=== PATIENT | female | born 1985 | race Caucasian/White ===

== ENCOUNTER 2017-11-28 18:40 | Emergency (ER) | payer OTHER ==
[~2017-11-28] VITALS: Ht 170.2 cm; Wt 76.2 kg
[~2017-11-28 18:40] MED LIST: MEDROLDOSEPACK PO; NOHOMEMEDICATIONS
[2017-11-28] MEDS ORDERED: SINGULAIR 10 MG10 MG PO (18:49)
[2017-11-28] MEDS ORDERED: PHAZYME180 MG PO (19:45)
[2017-11-28 20:04] VITALS: BP 122/72
--- NOTE | 2017-11-29 12:37 | EKG ---
[place] [address] ELECTROCARDIOGRAM REPORT Name: CONSTANTINEDOUGLAS Soledad Room: 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 : 1985 Requested By: Rachel Flanagan Order Number: [id number] MD: Marshal Carrera Measurements Intervals [place] Rate: 87 P: 42 TN: 184 QRS: 48 QRSD: 87 T: -6 QT: 343 QTc: 413 Interpretive Statements Sinus rhythm Borderline T abnormalities, anterior leads Compared to ECG 09/04/2009 01:36:40 T-wave abnormality now present Sinus bradycardia no longer present Sinus arrhythmia no longer present Electronically Signed On 11-29-2017 12:37:43 CDT by Marshal Carrera [email or web address] <ELECTRONICALLY SIGNED> By: Marshal Carrera MD, FACC 11/29/17 1237 1845 1845 Marshal Carrera MD, [facility] /EPI
== END 2017-11-28 20:05 | disposition home or self-care (01) ==
LOC: M.ERS 18:40
DX: R12 Heartburn (principal); J45.909 Unspecified asthma, uncomplicated

== ENCOUNTER 2020-06-08 01:48 | Emergency (ER) | payer OTHER ==
[~2020-06-08] VITALS: Ht 170.2 cm; Wt 78.0 kg
[~2020-06-08 01:48] MED LIST changes: +PHAZYME180 MG PO; +SINGULAIR 10 MG10 MG PO
[2020-06-08 02:24] LABS: ABSOLUTE BASOPHILS 0.1 thou/uL (0.0-0.2); ABSOLUTE EOSINOPHILS 0.2 thou/uL (0.0-0.7); ABSOLUTE LYMPHOCYTES 2.3 thou/uL (0.8-5.3); ABSOLUTE MONOCYTES 0.4 thou/uL (0.0-1.2); ABSOLUTE NEUTROPHILS 6.2 thou/uL (1.6-8.1); BASOPHILS 1.1 %; EOSINOPHILS 1.8 %; HEMATOCRIT 39.6 % (37.0-47.0); HEMOGLOBIN 14.1 gm/dL (12.0-15.0); LYMPHOCYTES 24.9 %; MCH 30.1 pg (26.0-34.0); MCHC 35.7 g/dL (28.0-37.0); MCV 84.4 fL (80.0-100.0); MONOCYTES 4.6 %; MPV 8.5 fl. (7.2-11.1); NUCLEATED RBCS 0 /100WBC; PLATELET COUNT* 148 thou/uL (150-400); POLYS 67.6 %; RBC 4.69 mil/uL (4.20-5.00); RDW-CV 12.7 % (10.5-14.5); WBC 9.2 thou/uL (4.0-11.0)
[2020-06-08 02:40] LABS: CALCIUM 8.9 mg/dL (8.5-10.1); CREATININE 0.8 mg/dL (0.6-1.3); POTASSIUM 3.6 mmol/L (3.5-5.1)
[2020-06-08 02:44] LABS: ALBUMIN 3.9 g/dL (3.4-5.0); TOTAL BILIRUBIN 0.5 mg/dL (<0.1-1.0); TOTAL PROTEIN 7.1 g/dL (6.4-8.2)
[2020-06-08 03:46] VITALS: BP 122/67
--- NOTE | 2020-06-08 16:15 | EKG ---
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 : 1985 Requested By: Mackenzie Garcia Order Number: [id number] MD: Rahat Stover Measurements Intervals [place] Rate: 83 P: 50 DC: 184 QRS: 45 QRSD: 85 T: 17 QT: 343 QTc: 403 Interpretive Statements Sinus rhythm Consider left atrial enlargement Borderline low voltage, extremity leads Abnormal R-wave progression, early transition Compared to ECG 11/28/2017 18:45:29 T-wave abnormality no longer present Electronically Signed On 06-08-2020 16:15:22 CDT by Rahat Stover [email or web address] <ELECTRONICALLY SIGNED> By: Rahat Stover MD, FAC 06/08/20 1615 0153 0153 Rahat Stover MD, [facility] /EPI
== END 2020-06-08 03:46 | disposition home or self-care (01) ==
LOC: M.ERS 01:48
PROVIDERS: Emergency Medicine
DX: R12 Heartburn (principal); J45.909 Unspecified asthma, uncomplicated; Z98.51 Tubal ligation status